=== PATIENT | male | born 1930 | race American Indian/Alaskan Native ===

== ENCOUNTER 2018-03-10 11:58 | Inpatient (IN) | payer MEDICARE ==
[2018-03-10] MEDS ORDERED: NACL 0.9% 1000 ML IV ONE (13:40)
[2018-03-10 13:44] LABS: Basophils % (Auto) 0.4 % (0.0-1.8); Eosinophils % (Auto) 0.1 % (0.0-4.3); Hematocrit 38.1 % (35.5-45.6); Hemoglobin 12.5 gm/dl (11.8-15.2); Lymphocytes # (Auto) 0.5 K/mm3 (1.2-5.4); Lymphocytes % (Auto) 5.3 % (13.4-35.0); Mean Corpuscular HGB Conc 33 % (32-34); Mean Corpuscular Hemoglobin 31 pg (28-32); Mean Corpuscular Volume 94 fl (84-94); Monocytes # (Auto) 0.7 K/mm3 (0.0-0.8); Platelet Count 202 K/mm3 (140-440); Red Blood Count 4.07 M/mm3 (3.65-5.03)
[2018-03-10 13:56] LABS: Bilirubin,Urine NEG (Negative); Blood,Urine SM (Negative); Color,Urine Yellow (Yellow); Mucus,Urine FEW /HPF; Urobilinogen,Urine < 2.0 mg/dL (<2.0)
[2018-03-10] MEDS ORDERED: HumuLIN R IV ONE (14:09)
--- NOTE | 2018-03-10 14:25 | Emergency Department Report ---
ED Altered Mental Status HPI - General Chief Complaint: Altered Mental Status Stated Complaint: HYPERGLYCENIA Time Seen by Provider: 03/10/18 13:15 Source: EMS Mode of arrival: Stretcher Limitations: Altered Mental Status - History of Present Illness Initial Comments: 87 yo male with a past medical history of anemia of chronic renal disease, hypertension, dementia, diabetes (on insulin), stage IV CKD, hyperlipidemia, prostate cancer, and PAD presents to the hospital from the long term for hypoglycemia and altered mental status. Glucose is reported in the 500s prior to arrival. Patient's son-in-law at the bedside states that he is typically alert and responsive. Patient is awake although slow to respond to questions. He is oriented to year but not place or date. He denies any pain currently and does not appear to be in any acute distress. Glucose 390 upon arrival. - Related Data Home Medications Medication Instructions Recorded Confirmed Last Taken Aspirin [Adult Aspirin] 81 mg PO DAILY 03/10/18 03/10/18 Unknown AtorvaSTATin [Lipitor] 10 mg PO QHS 03/10/18 03/10/18 Unknown Carvedilol 12.5 mg PO BID 03/10/18 03/10/18 Unknown Ferrous Sulfate [Iron] 325 mg PO DAILY 03/10/18 03/10/18 Unknown Insulin Glargine [Lantus] 9 unit SUB-Q QHS 03/10/18 03/10/18 Unknown Insulin Lispro [Humalog 100 0 units SQ AC 03/10/18 03/10/18 Unknown UNITS/ML Kwikpen] Loratadine [Allergy Relief] 10 mg PO DAILY 03/10/18 03/10/18 Unknown Rivastigmine Tartrate 4.5 mg PO BID 03/10/18 03/10/18 Unknown [Rivastigmine] Thiamine [Vitamin B-1] 100 mg PO QDAY 03/10/18 03/10/18 Unknown Allergies Allergy/AdvReac Type Severity Reaction Status Date / Time No Known Allergies Allergy Unverified 03/10/18 14:19 ED Review of Systems ROS: Stated complaint: HYPERGLYCENIA Other details as noted in HPI Comment: All other systems reviewed and negative ED Past Medical Hx - Past Medical History Hx Hypertension: Yes Hx Heart Attack/AMI: Yes Hx Renal Disease: Yes (stage IV chronic kidney disease) Hx of Cancer: Yes (history of prostate cancer) Hx Dementia: Yes Additional medical history: PAD. Hyperlipidemia - Surgical History Hx Open Heart Surgery: Yes (bypass) - Medications Home Medications: Home Medications Medication Instructions Recorded Confirmed Last Taken Type Aspirin [Adult Aspirin] 81 mg PO DAILY 03/10/18 03/10/18 Unknown History AtorvaSTATin [Lipitor] 10 mg PO QHS 03/10/18 03/10/18 Unknown History Carvedilol 12.5 mg PO BID 03/10/18 03/10/18 Unknown History Ferrous Sulfate [Iron] 325 mg PO DAILY 03/10/18 03/10/18 Unknown History Insulin Glargine [Lantus] 9 unit SUB-Q QHS 03/10/18 03/10/18 Unknown History Insulin Lispro [Humalog 100 0 units SQ AC 03/10/18 03/10/18 Unknown History UNITS/ML Kwikpen] Loratadine [Allergy Relief] 10 mg PO DAILY 03/10/18 03/10/18 Unknown History Rivastigmine Tartrate 4.5 mg PO BID 03/10/18 03/10/18 Unknown History [Rivastigmine] Thiamine [Vitamin B-1] 100 mg PO QDAY 03/10/18 03/10/18 Unknown History ED Physical Exam - General Limitations: Altered Mental Status - Other Other exam information: General: No limitations, patient is alert in no acute distress Head exam: Atraumatic, normocephalic Eyes exam: Normal appearance, pupils equal reactive to light, extraocular movements intact ENT: Moist mucous membrane, normal oropharynx Neck exam: Normal inspection, full range of motion, no meningismus nontender Respiratory exam: Clear to auscultation bilateral, no wheezes, rales, crackles Cardiovascular: CABG scar, regular rhythm Abdomen: Soft, nondistended, and nontender, with normal bowel sounds, no rebound, or guarding Extremity: Full range of motion normal inspection no deformity Back: Normal Inspection, full range of motion, no tenderness Neurologic: Alert, oriented to year but not to self or place. Slow to respond to questions. No slurred speech or facial asymmetry. Equal hand clin tech. Equal foot dorsi flexion. Unable to sustain either leg up against gravity. At his baseline he has a shuffling gait without a walker or cane Psychiatric: normal affect, normal mood Skin: Warm, dry, intact ED Course Vital Signs 03/10/18 12:09 Temperature 94.8 F L Pulse Rate 76 Respiratory 11 L Rate Blood Pressure 177/92 O2 Sat by Pulse 100 Oximetry - Lab Data Result diagrams: 03/10/18 13:28 03/10/18 13:54 Lab Results 03/10/18 03/10/18 03/10/18 Range/Units 12:08 13:26 13:28 WBC 9.9 (4.5-11.0) K/mm3 RBC 4.07 (3.65-5.03) M/mm3 Hgb 12.5 (11.8-15.2) gm/dl Hct 38.1 (35.5-45.6) % MCV 94 (84-94) fl MCH 31 (28-32) pg MCHC 33 (32-34) % RDW 14.0 (13.2-15.2) % Plt Count 202 (140-440) K/mm3 Lymph % (Auto) 5.3 L (13.4-35.0) % Cross % (Auto) 7.0 (0.0-7.3) % Eos % (Auto) 0.1 (0.0-4.3) % Baso % (Auto) 0.4 (0.0-1.8) % Lymph # 0.5 L (1.2-5.4) K/mm3 Cross # 0.7 (0.0-0.8) K/mm3 Eos # 0.0 (0.0-0.4) K/mm3 Baso # 0.0 (0.0-0.1) K/mm3 Seg Neutrophils % 87.2 H (40.0-70.0) % Seg Neutrophils # 8.7 H (1.8-7.7) K/mm3 VBG pH (7.320-7.420) Sodium (137-145) mmol/L Potassium (3.6-5.0) mmol/L Chloride (98-107) mmol/L Carbon Dioxide (22-30) mmol/L Anion Gap mmol/L BUN (9-20) mg/dL Creatinine (0.8-1.5) mg/dL Estimated GFR ml/min BUN/Creatinine Ratio % Glucose (75-100) mg/dL POC Glucose 390 H (70-105) Calcium (8.4-10.2) mg/dL Magnesium (1.7-2.3) mg/dL Total Bilirubin (0.1-1.2) mg/dL AST (5-40) units/L ALT (7-56) units/L Alkaline Phosphatase (35-129) units/L Ammonia (25-60) umol/L Total Protein (6.3-8.2) g/dL Albumin (3.9-5) g/dL Albumin/Globulin Ratio % TSH (0.270-4.200) mlU/mL Free T4 (0.76-1.46) ng/dL Urine Color Yellow (Yellow) Urine Turbidity Slightly-cloudy (Clear) Urine pH 5.0 (5.0-7.0) Ur Specific [place] 1.021 (1.003-1.030) Urine Protein 100 mg/dl (Negative) mg/dL Urine Glucose (UA) >=500 (Negative) mg/dL Urine Ketones Neg (Negative) mg/dL Urine Blood Sm (Negative) Urine Nitrite Neg (Negative) Urine Bilirubin Neg (Negative) Urine Urobilinogen < 2.0 (<2.0) mg/dL Ur Leukocyte Esterase Neg (Negative) Urine WBC (Auto) 2.0 (0.0-6.0) /HPF Urine RBC (Auto) 3.0 (0.0-6.0) /HPF Urine Mucus Few /HPF 03/10/18 03/10/18 03/10/18 Range/Units 13:28 13:28 13:54 WBC (4.5-11.0) K/mm3 RBC (3.65-5.03) M/mm3 Hgb (11.8-15.2) gm/dl Hct (35.5-45.6) % MCV (84-94) fl MCH (28-32) pg MCHC (32-34) % RDW (13.2-15.2) % Plt Count (140-440) K/mm3 Lymph % (Auto) (13.4-35.0) % Cross % (Auto) (0.0-7.3) % Eos % (Auto) (0.0-4.3) % Baso % (Auto) (0.0-1.8) % Lymph # (1.2-5.4) K/mm3 Cross # (0.0-0.8) K/mm3 Eos # (0.0-0.4) K/mm3 Baso # (0.0-0.1) K/mm3 Seg Neutrophils % (40.0-70.0) % Seg Neutrophils # (1.8-7.7) K/mm3 VBG pH 7.323 (7.320-7.420) Sodium 146 H 145 (137-145) mmol/L Potassium 4.6 4.6 (3.6-5.0) mmol/L Chloride 104.1 103.8 (98-107) mmol/L Carbon Dioxide 25 25 (22-30) mmol/L Anion Gap 22 21 mmol/L BUN 58 H 57 H (9-20) mg/dL Creatinine 2.1 H 2.0 H (0.8-1.5) mg/dL Estimated GFR 36 39 ml/min BUN/Creatinine Ratio 28 29 % Glucose 462 H 469 H (75-100) mg/dL POC Glucose (70-105) Calcium 10.0 9.9 (8.4-10.2) mg/dL Magnesium (1.7-2.3) mg/dL Total Bilirubin 0.50 (0.1-1.2) mg/dL AST 19 (5-40) units/L ALT 13 (7-56) units/L Alkaline Phosphatase 61 (35-129) units/L Ammonia (25-60) umol/L Total Protein 8.3 H (6.3-8.2) g/dL Albumin 3.5 L (3.9-5) g/dL Albumin/Globulin Ratio 0.7 % TSH (0.270-4.200) mlU/mL Free T4 (0.76-1.46) ng/dL Urine Color (Yellow) Urine Turbidity (Clear) Urine pH (5.0-7.0) Ur Specific [place] (1.003-1.030) Urine Protein (Negative) mg/dL Urine Glucose (UA) (Negative) mg/dL Urine Ketones (Negative) mg/dL Urine Blood (Negative) Urine Nitrite (Negative) Urine Bilirubin (Negative) Urine Urobilinogen (<2.0) mg/dL Ur Leukocyte Esterase (Negative) Urine WBC (Auto) (0.0-6.0) /HPF Urine RBC (Auto) (0.0-6.0) /HPF Urine Mucus /HPF 03/10/18 03/10/18 03/10/18 Range/Units 13:54 14:06 14:06 WBC (4.5-11.0) K/mm3 RBC (3.65-5.03) M/mm3 Hgb (11.8-15.2) gm/dl Hct (35.5-45.6) % MCV (84-94) fl MCH (28-32) pg MCHC (32-34) % RDW (13.2-15.2) % Plt Count (140-440) K/mm3 Lymph % (Auto) (13.4-35.0) % Cross % (Auto) (0.0-7.3) % Eos % (Auto) (0.0-4.3) % Baso % (Auto) (0.0-1.8) % Lymph # (1.2-5.4) K/mm3 Cross # (0.0-0.8) K/mm3 Eos # (0.0-0.4) K/mm3 Baso # (0.0-0.1) K/mm3 Seg Neutrophils % (40.0-70.0) % Seg Neutrophils # (1.8-7.7) K/mm3 VBG pH (7.320-7.420) Sodium (137-145) mmol/L Potassium (3.6-5.0) mmol/L Chloride (98-107) mmol/L Carbon Dioxide (22-30) mmol/L Anion Gap mmol/L BUN (9-20) mg/dL Creatinine (0.8-1.5) mg/dL Estimated GFR ml/min BUN/Creatinine Ratio % Glucose (75-100) mg/dL POC Glucose (70-105) Calcium (8.4-10.2) mg/dL Magnesium 2.10 (1.7-2.3) mg/dL Total Bilirubin (0.1-1.2) mg/dL AST (5-40) units/L ALT (7-56) units/L Alkaline Phosphatase (35-129) units/L Ammonia 46.0 (25-60) umol/L Total Protein (6.3-8.2) g/dL Albumin (3.9-5) g/dL Albumin/Globulin Ratio % TSH 4.840 H (0.270-4.200) mlU/mL Free T4 1.10 (0.76-1.46) ng/dL Urine Color (Yellow) Urine Turbidity (Clear) Urine pH (5.0-7.0) Ur Specific [place] (1.003-1.030) Urine Protein (Negative) mg/dL Urine Glucose (UA) (Negative) mg/dL Urine Ketones (Negative) mg/dL Urine Blood (Negative) Urine Nitrite (Negative) Urine Bilirubin (Negative) Urine Urobilinogen (<2.0) mg/dL Ur Leukocyte Esterase (Negative) Urine WBC (Auto) (0.0-6.0) /HPF Urine RBC (Auto) (0.0-6.0) /HPF Urine Mucus /HPF - EKG Data -: EKG Interpreted by Me (inc rbbb) EKG shows normal: sinus rhythm, axis (qrs -34), QRS complexes (qrsd 116), ST-T waves (pvc's) Rate: normal (69) - Radiology Data Radiology results: report reviewed CT HEAD WITHOUT CONTRAST: HISTORY: Altered mental status. TECHNIQUE: Sequential CT images without contrast. FINDINGS: Images obtained show bilateral prominence of the sulci and ventricles. There are no abnormal intra- or extra-axial blood or fluid collections. There are no focal masses or evidence of mass effect. The garrett white matter differentiation appears within normal limits. Regions of periventricular decreased attenuation are consistent with microangiopathic ischemic disease. The posterior fossa structures including the fourth ventricle , cerebellum, and brainstem appear normal. The right frontal, right ethmoid and right maxillary sinuses are occluded. IMPRESSION: Evidence of atrophy and microangiopathic ischemic disease. No acute intracranial process noted. Sinus as described. AP CHEST: HISTORY: Mental status, sepsis Previous CABG changes are suspected. Heart size and pulmonary vascularity are normal. The lungs are adequately aerated. Very few calcified granulomas at the right lung base. Minor linear scarring adjacent to left hilum. No pleural effusion or pneumothorax. I MPRESSION: No acute cardiopulmonary process is identified. - Medical Decision Making Patient is awake and alert although somewhat slow to respond to questions. Family confirms that mental status is diminished. CT head unremarkable. Labs reveal dehydration and renal insufficiency. Baseline creatinine unknown since this is the patient's first visit on a record here. Pt hypothermic with Labs significant for dehydration, hyperglycemia without signs of DKA. Patient covered in warm blankets. No source of infection identified. Patient has CABG scar with a known EF. 30 mL per KG bolus of normal saline ordered as per sepsis protocol but then decreased to 1 L given due to unknown EF. Addtional fluids to be ordered by hospitalist. Elevated lactic acid. No source of infection identified. Cultures pending. - Differential Diagnosis sepsis, hypoglycemia, encephalopathy, CVA Critical Care Time: No Critical care attestation.: If time is entered above; I have spent that time in minutes in the direct care of this critically ill patient, excluding procedure time. ED Disposition Clinical Impression: Mental status, decreased, Dehydration, CRI (chronic renal insufficiency), Diabetes mellitus with hyperglycemia Dementia Qualifiers: Alzheimer's disease onset: late-onset Dementia behavioral disturbance: without behavioral disturbance Disposition: DC-09 OP ADMIT IP TO THIS HOSP Is pt being admited?: Yes Condition: Stable Time of Disposition: 15:44 (Dr Varghese/hosp)
[2018-03-10 14:29] LABS: Albumin 3.5 g/dL (3.9-5); Calcium 9.9 mg/dL (8.4-10.2)
--- NOTE | 2018-03-10 15:07 | Cat Scan Report ---
CT HEAD WITHOUT CONTRAST: HISTORY: Altered mental status. TECHNIQUE: Sequential CT images without contrast. FINDINGS: Images obtained show bilateral prominence of the sulci and ventricles. There are no abnormal intra- or extra-axial blood or fluid collections. There are no focal masses or evidence of mass effect. The garrett white matter differentiation appears within normal limits. Regions of periventricular decreased attenuation are consistent with microangiopathic ischemic disease. The posterior fossa structures including the fourth ventricle, cerebellum, and brainstem appear normal. The right frontal, right ethmoid and right maxillary sinuses are occluded. IMPRESSION: Evidence of atrophy and microangiopathic ischemic disease. No acute intracranial process noted. Sinus as described.
--- NOTE | 2018-03-10 15:15 | XRay Report ---
AP CHEST: HISTORY: Mental status, sepsis Previous CABG changes are suspected. Heart size and pulmonary vascularity are normal. The lungs are adequately aerated. Very few calcified granulomas at the right lung base. Minor linear scarring adjacent to left hilum. No pleural effusion or pneumothorax. IMPRESSION: No acute cardiopulmonary process is identified.
[2018-03-10 15:16] LABS: Free T4 (Free Thyroxine) 1.1 ng/dL (0.76-1.46)
[2018-03-10] MEDS ORDERED: NACL 0.9% 1000 ML 1,000 ML IV ONE (15:48)
--- NOTE | 2018-03-10 15:48 | History and Physical Report ---
History of Present Illness Chief complaint: He is more confused today History of present illness: 87 YO Male SNF Resident with Dementia, CAD S/P CABG, DM, HLD, CaP, PAD, ID presents to ED for evaluation. Pt is confused and unable to provide history. Pt daughters are at bedside at time of exam and provide history. As per family, the patient has experienced increased confusion over the past 3 weeks and decreased interaction with family. Pt was found by SNF staff to have worsening confusion today. EMS was notified, and upon arrival the patient was found to be confused with a serum glucose above 500. Pt transported to [facility] for further care and evaluation. Pt seen and evaluated in ED and found to have Encephalopathy, ARF, and Uncontrolled Diabetes. Pt admitted to [facility] with Remote Telemetry. Pt family counseled regarding prognosis. Past History Past Medical History: acute ID, cancer, diabetes, hypertension, hyperlipidemia, PVD Past Surgical History: CABG Social history: single Family history: diabetes, hypertension Medications and Allergies Allergies Allergy/AdvReac Type Severity Reaction Status Date / Time No Known Allergies Allergy Unverified 03/10/18 14:19 Home Medications Medication Instructions Recorded Confirmed Last Taken Type Aspirin [Adult Aspirin] 81 mg PO DAILY 03/10/18 03/10/18 Unknown History AtorvaSTATin [Lipitor] 10 mg PO QHS 03/10/18 03/10/18 Unknown History Carvedilol 12.5 mg PO BID 03/10/18 03/10/18 Unknown History Ferrous Sulfate [Iron] 325 mg PO DAILY 03/10/18 03/10/18 Unknown History Insulin Glargine [Lantus] 9 unit SUB-Q QHS 03/10/18 03/10/18 Unknown History Insulin Lispro [Humalog 100 0 units SQ AC 03/10/18 03/10/18 Unknown History UNITS/ML Kwikpen] Loratadine [Allergy Relief] 10 mg PO DAILY 03/10/18 03/10/18 Unknown History Rivastigmine Tartrate 4.5 mg PO BID 03/10/18 03/10/18 Unknown History [Rivastigmine] Thiamine [Vitamin B-1] 100 mg PO QDAY 03/10/18 03/10/18 Unknown History Active Meds: Active Medications Sodium Chloride (Nacl 0.9% 1000 Ml) 1,000 mls @ 999 mls/hr IV BOLUS ONE Stop: 03/10/18 16:48 Review of Systems ROS unobtainable: due to mental status Exam - Constitutional Vitals: Temp Pulse Resp BP Pulse Ox 94.8 F L 76 11 L 177/92 100 03/10/18 12:09 03/10/18 12:09 03/10/18 12:09 03/10/18 12:09 03/10/18 12:09 General appearance: Present: mild distress - EENT Eyes: Present: PERRL ENT: hearing intact, clear oral mucosa - Neck Neck: Present: supple, normal ROM - Respiratory Respiratory effort: normal Respiratory: bilateral: CTA - Cardiovascular Heart Sounds: Present: S1 & S2. Absent: rub, click - Extremities Extremities: pulses symmetrical, No edema Peripheral Pulses: within normal limits - Abdominal General gastrointestinal: Present: soft, non-tender, non-distended, normal bowel sounds Male genitourinary: Present: normal - Integumentary Integumentary: Present: clear, dry, decreased turgor - Musculoskeletal Musculoskeletal: generalized weakness - Psychiatric Psychiatric: no intact judgment & insight, no memory intact, cooperative - Neurologic Neurologic: CNII-XII intact, no gait normal Results - Labs CBC & Chem 7: 03/10/18 13:28 03/10/18 13:54 Labs: Abnormal lab results 03/10/18 03/10/18 03/10/18 Range/Units 12:08 13:28 13:28 Lymph % (Auto) 5.3 L (13.4-35.0) % Lymph # 0.5 L (1.2-5.4) K/mm3 Seg Neutrophils % 87.2 H (40.0-70.0) % Seg Neutrophils # 8.7 H (1.8-7.7) K/mm3 Sodium 146 H (137-145) mmol/L BUN 58 H (9-20) mg/dL Creatinine 2.1 H (0.8-1.5) mg/dL Glucose 462 H (75-100) mg/dL POC Glucose 390 H (70-105) Total Protein (6.3-8.2) g/dL Albumin (3.9-5) g/dL TSH (0.270-4.200) mlU/mL 03/10/18 03/10/18 Range/Units 13:54 14:06 Lymph % (Auto) (13.4-35.0) % Lymph # (1.2-5.4) K/mm3 Seg Neutrophils % (40.0-70.0) % Seg Neutrophils # (1.8-7.7) K/mm3 Sodium (137-145) mmol/L BUN 57 H (9-20) mg/dL Creatinine 2.0 H (0.8-1.5) mg/dL Glucose 469 H (75-100) mg/dL POC Glucose (70-105) Total Protein 8.3 H (6.3-8.2) g/dL Albumin 3.5 L (3.9-5) g/dL TSH 4.840 H (0.270-4.200) mlU/mL Assessment and Plan - Patient Problems (1) ARF (acute renal failure) with tubular necrosis Current Visit: Yes Status: Acute Plan to address problem: IVF resuscitation therapy, urine electrolytes, monitor uop q shift, repeat BMP. (2) Uncontrolled diabetes mellitus Current Visit: Yes Status: Acute Qualifiers: Glycemic state: with hyperglycemia Plan to address problem: Insulin therapy, ADA diet, accu check, (3) Encephalopathy Current Visit: Yes Status: Acute Plan to address problem: CT head, neuro checks, seizure precautions, fall precautions, EEG, Echo, (4) Dementia Current Visit: Yes Status: Acute Qualifiers: Alzheimer's disease onset: late-onset Dementia behavioral disturbance: without behavioral disturbance Plan to address problem: CT Head, neuro checks, supportive care, resume prehospital medication. (5) DVT prophylaxis Current Visit: Yes Status: Acute Plan to address problem: SCD to BLE while in bed.
[2018-03-10] MEDS ORDERED: TYLENOL PO PRN (15:52)
[2018-03-10] MEDS ORDERED: PROVENTIL IH PRN (15:52)
[2018-03-10] MEDS ORDERED: ZOFRAN IV PRN (15:52)
[2018-03-10] MEDS: APRESOLINE IV PRN (19:16)
[2018-03-10] MEDS: NACL 0.45% 1000 ML 1,000 ML IV SCH (19:47)
[2018-03-10] MEDS ORDERED: NACL 0.45% 1000 ML 1,000 ML IV ONE (19:55)
[2018-03-10] MEDS ORDERED: HumuLIN R ONE (20:15)
[2018-03-10] MEDS: HumuLIN R SUB-Q SCH ×2 (20:31→23:28)
[2018-03-10] MEDS ORDERED: RIVASTIGMINE TARTRATE 4.5 MG PO SCH (22:00)
[2018-03-10] MEDS: LANTUS SUB-Q SCH (23:28)
[2018-03-10] MEDS: PEPCID IV SCH (23:29)
[2018-03-10] MEDS: COREG PO SCH (23:30)
[2018-03-10] MEDS: SODIUM CHLORIDE FLUSH SYRINGE 10 ML IV SCH (23:31)
[2018-03-10] MEDS: EXELON PO SCH (23:31)
[2018-03-11] MEDS: APRESOLINE IV PRN (02:30)
[2018-03-11 04:47] LABS: Calcium 9.6 mg/dL (8.4-10.2)
[2018-03-11] MEDS: NACL 0.45% 1000 ML 1,000 ML IV SCH (05:30)
[2018-03-11] MEDS: SODIUM CHLORIDE FLUSH SYRINGE 10 ML IV PRN ×2 (07:36→11:41)
[2018-03-11] MEDS: D50W (25GM) Syringe IV PRN ×3 (07:36→22:30)
[2018-03-11] MEDS: HumuLIN R SUB-Q SCH ×4 (08:14→22:46)
[2018-03-11] MEDS: NACL 0.9% 1000 ML 1,000 ML IV SCH ×2 (09:56→21:59)
[2018-03-11] MEDS: FEOSOL PO SCH (12:35)
[2018-03-11] MEDS: VITAMIN B-1 PO SCH (12:35)
[2018-03-11] MEDS: PEPCID IV SCH ×2 (12:36→22:00)
[2018-03-11] MEDS: COREG PO SCH ×2 (12:36→21:59)
[2018-03-11] MEDS: HALFPRIN EC PO SCH (12:36)
[2018-03-11] MEDS: CLARITIN PO SCH (12:37)
[2018-03-11] MEDS: EXELON PO SCH ×2 (12:40→21:59)
[2018-03-11] MEDS: SODIUM CHLORIDE FLUSH SYRINGE 10 ML IV SCH ×2 (12:41→22:00)
--- NOTE | 2018-03-11 14:10 | Progress Note ---
Assessment and Plan / ARF (acute renal failure) with tubular necrosis ? cont IVF resuscitation therapy, urine electrolytes, monitor uop q shift, repeat BMP. Obtain renal US for possible underlying CKD, baseline Cr unknown /Uncontrolled diabetes mellitus BG was ~500 on admission Insulin therapy, ADA diet, accu check, / Acute metabolic Encephalopathy Likely due to worsening renal function and uncontrolled BG CT head unremarkable, neuro checks, seizure precautions, fall precautions /HTN, cont coreg and as needed hydralazine IV adjust meds dose as needed for better control BP /Dementia supportive care, resume prehospital medication. /Coronary artery disease status post bypass surgery Cont aspirin, statin, BB Hold ACEI, diuretics / DVT prophylaxis SCD to BLE while in bed. Subjective Date of service: 03/11/18 Interval history: Pt seen and examined Family at bedside, updated Patient is restraint, denies any chest pain or SOB Objective - Constitutional Vitals: Vital Signs - 12hr 03/11/18 03/11/18 03/11/18 02:30 07:27 09:03 Temperature 97.4 F L Pulse Rate 57 L 78 Pulse Rate [ From Monitor] Respiratory 18 Rate Blood Pressure 177/89 155/83 O2 Sat by Pulse 99 99 Oximetry 03/11/18 03/11/18 03/11/18 10:00 11:18 11:20 Temperature 97.3 F L Pulse Rate 65 78 77 Pulse Rate [ 78 From Monitor] Respiratory 18 18 Rate Blood Pressure 175/84 O2 Sat by Pulse 99 100 100 Oximetry 03/11/18 12:36 Temperature Pulse Rate 78 Pulse Rate [ From Monitor] Respiratory Rate Blood Pressure 175/84 O2 Sat by Pulse Oximetry General appearance: Present: no acute distress, well-nourished, other (elderly) - EENT Eyes: PERRL, EOM intact ENT: hearing intact, clear oral mucosa Ears: bilateral: normal - Neck Neck: supple, normal ROM - Respiratory Respiratory effort: normal Respiratory: bilateral: CTA - Cardiovascular Rhythm: regular Heart Sounds: Present: S1 & S2. Absent: gallop, rub Extremities: pulses intact, No edema, normal color, Full ROM - Gastrointestinal General gastrointestinal: Present: soft, non-tender, non-distended, normal bowel sounds - Integumentary Integumentary: clear, warm, dry - Musculoskeletal Musculoskeletal: 1, strength equal bilaterally - Neurologic Neurologic: moves all extremities, other (oriented to self only) - Psychiatric Psychiatric: no appropriate mood/affect, no intact judgment & insight, no memory intact - Labs CBC & Chem 7: 03/10/18 13:28 03/13/18 03:02 Labs: Abnormal lab results 03/10/18 03/10/18 03/10/18 Range/Units 13:54 14:06 16:03 D-Dimer (0-234) ng/mlDDU Chloride (98-107) mmol/L Carbon Dioxide (22-30) mmol/L BUN 57 H (9-20) mg/dL Creatinine 2.0 H (0.8-1.5) mg/dL Glucose 469 H (75-100) mg/dL POC Glucose (70-105) Lactic Acid 3.60 H* (0.7-2.0) mmol/L NT-Pro-B Natriuret Pep (0-900) pg/mL Total Protein 8.3 H (6.3-8.2) g/dL Albumin 3.5 L (3.9-5) g/dL TSH 4.840 H (0.270-4.200) mlU/mL Urine Creatinine (0.1-20.0) mg/dL 03/10/18 03/10/18 03/10/18 Range/Units 16:03 16:03 17:43 D-Dimer 489.32 H (0-234) ng/mlDDU Chloride (98-107) mmol/L Carbon Dioxide (22-30) mmol/L BUN (9-20) mg/dL Creatinine (0.8-1.5) mg/dL Glucose (75-100) mg/dL POC Glucose (70-105) Lactic Acid 2.20 H* (0.7-2.0) mmol/L NT-Pro-B Natriuret Pep 2058 H (0-900) pg/mL Total Protein (6.3-8.2) g/dL Albumin (3.9-5) g/dL TSH (0.270-4.200) mlU/mL Urine Creatinine (0.1-20.0) mg/dL 03/10/18 03/10/18 03/10/18 Range/Units 18:40 20:47 22:46 D-Dimer (0-234) ng/mlDDU Chloride (98-107) mmol/L Carbon Dioxide (22-30) mmol/L BUN (9-20) mg/dL Creatinine (0.8-1.5) mg/dL Glucose (75-100) mg/dL POC Glucose 310 H (70-105) Lactic Acid 2.80 H* 2.30 H* (0.7-2.0) mmol/L NT-Pro-B Natriuret Pep (0-900) pg/mL Total Protein (6.3-8.2) g/dL Albumin (3.9-5) g/dL TSH (0.270-4.200) mlU/mL Urine Creatinine (0.1-20.0) mg/dL 03/10/18 03/11/18 03/11/18 Range/Units 23:02 03:33 03:47 D-Dimer (0-234) ng/mlDDU Chloride 108.6 H (98-107) mmol/L Carbon Dioxide 21 L (22-30) mmol/L BUN 52 H (9-20) mg/dL Creatinine 1.9 H (0.8-1.5) mg/dL Glucose 184 H (75-100) mg/dL POC Glucose 232 H (70-105) Lactic Acid 2.90 H* (0.7-2.0) mmol/L NT-Pro-B Natriuret Pep (0-900) pg/mL Total Protein (6.3-8.2) g/dL Albumin (3.9-5) g/dL TSH (0.270-4.200) mlU/mL Urine Creatinine (0.1-20.0) mg/dL 03/11/18 03/11/18 03/11/18 Range/Units 07:27 08:13 11:18 D-Dimer (0-234) ng/mlDDU Chloride (98-107) mmol/L Carbon Dioxide (22-30) mmol/L BUN (9-20) mg/dL Creatinine (0.8-1.5) mg/dL Glucose (75-100) mg/dL POC Glucose 58 L 114 H 68 L (70-105) Lactic Acid (0.7-2.0) mmol/L NT-Pro-B Natriuret Pep (0-900) pg/mL Total Protein (6.3-8.2) g/dL Albumin (3.9-5) g/dL TSH (0.270-4.200) mlU/mL Urine Creatinine (0.1-20.0) mg/dL 03/11/18 03/11/18 03/11/18 Range/Units 11:30 12:36 Unknown D-Dimer (0-234) ng/mlDDU Chloride (98-107) mmol/L Carbon Dioxide (22-30) mmol/L BUN (9-20) mg/dL Creatinine (0.8-1.5) mg/dL Glucose (75-100) mg/dL POC Glucose 163 H (70-105) Lactic Acid 2.70 H* (0.7-2.0) mmol/L NT-Pro-B Natriuret Pep (0-900) pg/mL Total Protein (6.3-8.2) g/dL Albumin (3.9-5) g/dL TSH (0.270-4.200) mlU/mL Urine Creatinine 95.0 H (0.1-20.0) mg/dL
[2018-03-11] MEDS: LANTUS SUB-Q SCH (22:00)
[2018-03-12 05:45] LABS: Calcium 8.7 mg/dL (8.4-10.2)
[2018-03-12] MEDS: HumuLIN R SUB-Q SCH ×4 (08:15→22:08)
[2018-03-12] MEDS: APRESOLINE IV PRN (08:15)
[2018-03-12] MEDS: VITAMIN B-1 PO SCH (09:43)
[2018-03-12] MEDS: CLARITIN PO SCH (09:43)
[2018-03-12] MEDS: HALFPRIN EC PO SCH (09:43)
[2018-03-12] MEDS: FEOSOL PO SCH (09:44)
[2018-03-12] MEDS: COREG PO SCH ×2 (09:44→22:07)
[2018-03-12] MEDS: PEPCID IV SCH (09:46)
[2018-03-12] MEDS: SODIUM CHLORIDE FLUSH SYRINGE 10 ML IV SCH ×2 (09:47→22:09)
[2018-03-12] MEDS: EXELON PO SCH ×2 (09:47→22:06)
--- NOTE | 2018-03-12 10:40 | Consultation ---
History of Present Illness - Reason for Consult Consult date: 03/12/18 acute renal failure Requesting physician: SHAWNEE NAVARRO - History of Present Illness 87 YO Male SNF Resident with Dementia, CAD S/P CABG, DM, HLD, CaP, PAD, [place] presents to ED for evaluation. Pt is confused and unable to provide history. Information obtained from patient's admission notes . As per family, the patient had experienced increased confusion over the past 3 weeks and decreased interaction with family. Pt was found by SNF staff to have worsening confusion on the day of admission . EMS was notified, and upon arrival the patient was found to be confused with a serum glucose above 500. Pt transported to [facility] for further care and evaluation. Patient was found to have elevation in BUN/creatinine and therefore this consultation Past History Past Medical History: acute [place], cancer, diabetes, hypertension, hyperlipidemia, PVD Past Surgical History: CABG Social history: single Family history: diabetes, hypertension Medications and Allergies Allergies Allergy/AdvReac Type Severity Reaction Status Date / Time No Known Allergies Allergy Unverified 03/10/18 14:19 Home Medications Medication Instructions Recorded Confirmed Last Taken Type Aspirin [Adult Aspirin] 81 mg PO DAILY 03/10/18 03/10/18 Unknown History AtorvaSTATin [Lipitor] 10 mg PO QHS 03/10/18 03/10/18 Unknown History Carvedilol 12.5 mg PO BID 03/10/18 03/10/18 Unknown History Ferrous Sulfate [Iron] 325 mg PO DAILY 03/10/18 03/10/18 Unknown History Insulin Glargine [Lantus] 9 unit SUB-Q QHS 03/10/18 03/10/18 Unknown History Insulin Lispro [Humalog 100 0 units SQ AC 03/10/18 03/10/18 Unknown History UNITS/ML Kwikpen] Loratadine [Allergy Relief] 10 mg PO DAILY 03/10/18 03/10/18 Unknown History Rivastigmine Tartrate 4.5 mg PO BID 03/10/18 03/10/18 Unknown History [Rivastigmine] Thiamine [Vitamin B-1] 100 mg PO QDAY 03/10/18 03/10/18 Unknown History Active Meds: Active Medications Acetaminophen (Tylenol) 650 mg PO Q4H PRN PRN Reason: Pain MILD(1-3)/Fever >100.5/WING Albuterol (Proventil) 2.5 mg IH Q4HRT PRN PRN Reason: Shortness Of Breath Aspirin (Halfprin Ec) 81 mg PO DAILY [facility] Last Admin: 03/12/18 09:43 Dose: 81 mg Atorvastatin Calcium (Lipitor) 10 mg PO QHS [facility] Last Admin: 03/11/18 22:00 Dose: 10 mg Carvedilol (Coreg) 12.5 mg PO BID [facility] Last Admin: 03/12/18 09:44 Dose: 12.5 mg Dextrose (D50w (25gm) Syringe) 50 ml IV PRN PRN PRN Reason: Hypoglycemia Last Admin: 03/11/18 22:30 Dose: 50 ml Famotidine (Pepcid) 10 mg IV BID [facility] Last Admin: 03/12/18 09:46 Dose: 10 mg Ferrous Sulfate (Feosol) 325 mg PO DAILY [facility] Last Admin: 03/12/18 09:44 Dose: 325 mg Hydralazine HCl (Apresoline) 5 mg IV Q30MIN PRN PRN Reason: Hypertension Last Admin: 03/12/18 08:15 Dose: 5 mg Sodium Chloride (Nacl 0.9% 1000 Ml) 1,000 mls @ 100 mls/hr IV DIRECT [facility] Last Admin: 03/11/18 21:59 Dose: 100 mls/hr Insulin Glargine (Lantus) 9 units SUB-Q QHS [facility] Last Admin: 03/11/18 22:00 Dose: 9 units Insulin Human Regular (Humulin R) 0 units SUB-Q [facility]; Protocol Last Admin: 03/12/18 08:15 Dose: Not Given Loratadine (Claritin) 10 mg PO DAILY [facility] Last Admin: 03/12/18 09:43 Dose: 10 mg Ondansetron HCl (Zofran) 4 mg IV Q8H PRN PRN Reason: Nausea And Vomiting Rivastigmine Tartrate (Exelon) 4.5 mg PO BID [facility] Last Admin: 03/12/18 09:47 Dose: 4.5 mg Sodium Chloride (Sodium Chloride Flush Syringe 10 Ml) 10 ml IV BID [facility] Last Admin: 03/12/18 09:47 Dose: 10 ml Sodium Chloride (Sodium Chloride Flush Syringe 10 Ml) 10 ml IV PRN PRN PRN Reason: LINE FLUSH Last Admin: 03/11/18 11:41 Dose: 10 ml Thiamine HCl (Vitamin B-1) 100 mg PO QDAY [facility] Last Admin: 03/12/18 09:43 Dose: 100 mg Review of Systems ROS unobtainable: due to mental status Exam - Vital Signs Vital signs: Vital Signs Temp Pulse Resp BP Pulse Ox 94.8 F L 76 11 L 177/92 100 03/10/18 12:09 03/10/18 12:09 03/10/18 12:09 03/10/18 12:09 03/10/18 12:09 - General Appearance General appearance: chronically ill, frail, other (pleasant -Czech male) EENT: PERRL, mucous membranes moist Neck: Present: neck supple, trachea midline. Absent: JVD/HJR, Masses Respiratory: Clear to Ascultation Heart: regular, normal heart rate, S1S2, no murmurs Gastrointestinal: Present: normal, normoactive bowel sounds, other (bladder does not appear distended) Integumentary: no rash, other (no edema) Results - Lab Results 03/10/18 13:28 03/12/18 04:18 Most recent lab results Calcium 8.7 mg/dL (8.4-10.2) 03/12/18 04:18 Magnesium 2.10 mg/dL (1.7-2.3) 03/10/18 13:54 Urine Creatinine 95.0 mg/dL (0.1-20.0) H 03/11/18 11:30 Urine Sodium 105 mmol/L 03/11/18 11:30 Assessment and Plan Impression * Acute kidney injury * Encephalopathy * Hypertension * Uncontrolled diabetes * Dementia * Coronary artery disease status post bypass surgery Recommendations * Patient clinically appears to be volume depleted. His serum creatinine was 2.1 on admission. * He seems to be responding to IV hydration. However his fractional excretion of sodium is 1.5% * His baseline renal function however is not known. * He also has 2+ dipstick protein. He may have underlying diabetic nephropathy. Check urine protein creatinine ratio * Continue IV hydration * Check renal ultrasound to assess kidney size and echogenicity. Also check a postvoid residual * Monitor patient's fluid status and electrolytes closely * Avoid nephrotoxins. Avoid CHERIE inhibitor or ARB at this time as well * Thank you very much for the consultation. Shall follow along with you
--- NOTE | 2018-03-12 15:09 | Progress Note ---
Assessment and Plan / ARF (acute renal failure) with tubular necrosis ? cont IVF resuscitation therapy, repeat BMP in the am. Renal function improving renal US was unremarkable, baseline Cr unknown /Uncontrolled diabetes mellitus BG was ~500 on admission adjust Insulin therapy as needed, cont ADA diet, accu check, / Acute metabolic Encephalopathy Likely due to worsening renal function and uncontrolled BG CT head unremarkable, cont neuro checks, seizure precautions, fall precautions /HTN, cont coreg and as needed hydralazine IV adjust meds dose as needed for better control BP /Dementia supportive care, resume prehospital medication. /Coronary artery disease status post bypass surgery Cont aspirin, statin, BB Hold ACEI, diuretics / DVT prophylaxis SCD to BLE while in bed. Disposition: Family wants him to go bacl to personal skilled nursing but if he required SNF level of care they are willing to consider SNF. Brief History: 87 YO Male personal skilled nursing Resident with h/o Dementia, CAD S/P CABG, DM, HLD , PAD, [place] presents to ED for evaluation of increased confusion over the past 3 weeks and decreased interaction with family. EMS was notified, and the patient was found to be confused with a serum glucose above 500. Pt transported to [facility] for further care and evaluation and was found to have elevation in BUN/ creatinine with hyperglycemia. Radiological data: Renal US: Bilateral renal cysts. No hydronephrosis. CT head: Evidence of atrophy and microangiopathic ischemic disease. No acute intracranial process noted. Sinus as described. CXR: No acute cardiopulmonary process is identified. Subjective Date of service: 03/12/18 Interval history: Pt seen and examined Family at bedside, updated Patient is restraint, denies any chest pain or SOB Objective - Exam Narrative Exam: General appearance: Present: no acute distress, well-nourished, other (elderly) - EENT Eyes: PERRL, EOM intact ENT: hearing intact, clear oral mucosa Ears: bilateral: normal - Neck Neck: supple, normal ROM - Respiratory Respiratory effort: normal Respiratory: bilateral: CTA - Cardiovascular Rhythm: regular Heart Sounds: Present: S1 & S2. Absent: gallop, rub Extremities: pulses intact, No edema, normal color, Full ROM - Gastrointestinal General gastrointestinal: Present: soft, non-tender, non-distended, normal bowel sounds - Integumentary Integumentary: clear, warm, dry - Musculoskeletal Musculoskeletal: 1, strength equal bilaterally - Neurologic Neurologic: moves all extremities, other (oriented to self only) - Psychiatric Psychiatric: no appropriate mood/affect, no intact judgment & insight, no memory intact - Constitutional Vitals: Vital Signs - 12hr 03/12/18 03/12/18 03/12/18 03:36 07:23 08:15 Temperature 98.1 F 97.4 F L Pulse Rate 75 71 71 Respiratory 18 18 Rate Blood Pressure 168/93 189/86 189/86 O2 Sat by Pulse 95 100 Oximetry 03/12/18 03/12/18 03/12/18 08:51 09:14 09:44 Temperature Pulse Rate 89 89 Respiratory 20 Rate Blood Pressure 138/78 138/78 O2 Sat by Pulse 98 98 Oximetry - Labs CBC & Chem 7: 03/10/18 13:28 03/13/18 03:02 Labs: Abnormal lab results 03/11/18 03/11/18 03/11/18 Range/Units 16:01 16:41 22:20 Carbon Dioxide (22-30) mmol/L BUN (9-20) mg/dL Creatinine (0.8-1.5) mg/dL Glucose (75-100) mg/dL POC Glucose 316 H 49 L (70-105) Hemoglobin A1c 11.9 H (4-6) % 03/11/18 03/12/18 03/12/18 Range/Units 23:08 04:18 07:23 Carbon Dioxide 20 L (22-30) mmol/L BUN 37 H (9-20) mg/dL Creatinine 1.7 H (0.8-1.5) mg/dL Glucose 125 H (75-100) mg/dL POC Glucose 210 H 133 H (70-105) Hemoglobin A1c (4-6) % 03/12/18 Range/Units 11:47 Carbon Dioxide (22-30) mmol/L BUN (9-20) mg/dL Creatinine (0.8-1.5) mg/dL Glucose (75-100) mg/dL POC Glucose 288 H (70-105) Hemoglobin A1c (4-6) %
--- NOTE | 2018-03-12 18:50 | Ultrasound Report ---
FINAL REPORT EXAM: US BLADDER RESIDUAL HISTORY: SUELLEN TECHNIQUE: Ultrasound imaging of the urinary bladder was performed. PRIORS: None. FINDINGS: No bladder wall thickening or internal debris. Prevoid bladder volume was 226 milliliters. No postvoid images were obtained as the patient could not urinate. IMPRESSION: Bladder volume of 226 milliliters. No postvoid images obtained as the patient could not urinate.
[2018-03-12] MEDS: NACL 0.9% 1000 ML 1,000 ML IV SCH (20:10)
--- NOTE | 2018-03-12 20:38 | Ultrasound Report ---
FINAL REPORT EXAM: US RENAL BILAT HISTORY: SUELLEN COMPARISON: None available. TECHNIQUE: Several real-time grayscale and color Doppler images were obtained. FINDINGS: Right kidney measures 10.0 x 4.4 x 5.2 centimeters. The cortex 1.3 centimeters. Left kidney measures 9.5 x 5.4 x 4.1 centimeters. Cortex 1.7 centimeters. At the superior margin right kidney there is a 9 millimeter cyst. The mid right kidney there is a 9 millimeter hypoechoic structure most likely reflecting a cyst. There is a 2nd cyst at the superior margin right kidney measuring 8 millimeters. At the superior margin of the left kidney there is a 3.3 x 2.7 x 3.3 centimeter cyst. No hydronephrosis bilaterally. Punctate nonobstructive renal calculi could be obscured by renal sinus fat. Gross vascular flow to the kidneys. Urinary bladder is decompressed. IMPRESSION: Bilateral renal cysts. No hydronephrosis.
[2018-03-12 21:00] LABS: Creatinine,Urine 20.7 mg/dL (0.1-20.0); Protein/Creatinine Ratio,Urine 0.63
[2018-03-12] MEDS: PEPCID PO SCH (22:07)
[2018-03-12] MEDS: LANTUS SUB-Q SCH (22:08)
[2018-03-13 03:35] LABS: Calcium 8.4 mg/dL (8.4-10.2)
[2018-03-13] MEDS: APRESOLINE IV PRN (05:05)
[2018-03-13] MEDS: APRESOLINE PO SCH ×3 (08:33→22:35)
[2018-03-13] MEDS: HumuLIN R SUB-Q SCH ×5 (08:55→22:36)
--- NOTE | 2018-03-13 10:23 | Progress Note ---
Assessment and Plan Impression * Acute kidney injury * Encephalopathy * Hypertension * Uncontrolled diabetes * Dementia * Coronary artery disease status post bypass surgery Recommendations * Patient clinically appears to be volume depleted. * cr is better today * bladder us noted, inability to void? obstruction, place aleman if needed * He seems to be responding to IV hydration. * He also has 2+ dipstick protein. He may have underlying diabetic nephropathy. noted urine protein creatinine ratio * Continue IV hydration * Monitor patient's fluid status and electrolytes closely * Avoid nephrotoxins. Avoid CHERIE inhibitor or ARB at this time as well Subjective Date of service: 03/13/18 Principal diagnosis: chyna Interval history: resting in bed today Objective - Exam Narrative Exam: General appearance: chronically ill, frail, other (pleasant -Omani male) EENT: PERRL, mucous membranes moist Neck: Present: neck supple, trachea midline. Absent: JVD/HJR, Masses Respiratory: Clear to Ascultation Heart: regular, normal heart rate, S1S2, no murmurs Gastrointestinal: Present: normal, normoactive bowel sounds, other (bladder does not appear distended) Integumentary: no rash, other (no edema) - Vital Signs Vital signs: Vital Signs - 12hr 03/12/18 03/13/18 03/13/18 23:34 03:35 05:05 Temperature 97.8 F 98.3 F Pulse Rate 76 79 79 Respiratory 20 18 Rate Blood Pressure 145/66 210/94 210/94 O2 Sat by Pulse 100 100 Oximetry 03/13/18 03/13/18 07:58 08:33 Temperature 97.8 F Pulse Rate 77 77 Respiratory 20 Rate Blood Pressure 181/85 181/85 O2 Sat by Pulse 98 Oximetry - Lab 03/10/18 13:28 03/13/18 03:02 Most recent lab results Calcium 8.4 mg/dL (8.4-10.2) 03/13/18 03:02 Magnesium 2.10 mg/dL (1.7-2.3) 03/10/18 13:54 Urine Creatinine 20.7 mg/dL (0.1-20.0) H 03/12/18 20:26 Urine Sodium 105 mmol/L 03/11/18 11:30 Urine Total Protein 13 mg/dL (5-11.8) H 03/12/18 20:26
[2018-03-13] MEDS: EXELON PO SCH ×2 (12:06→22:34)
[2018-03-13] MEDS: VITAMIN B-1 PO SCH (12:06)
[2018-03-13] MEDS: PEPCID PO SCH ×2 (12:06→22:34)
[2018-03-13] MEDS: COREG PO SCH ×2 (12:06→22:34)
[2018-03-13] MEDS: NORVASC PO SCH (12:06)
[2018-03-13] MEDS: FEOSOL PO SCH (12:06)
[2018-03-13] MEDS: HALFPRIN EC PO SCH (12:07)
[2018-03-13] MEDS: CLARITIN PO SCH (12:07)
[2018-03-13] MEDS: HEPARIN SUB-Q SCH ×2 (12:08→22:34)
--- NOTE | 2018-03-13 14:31 | Progress Note ---
Assessment and Plan / ARF (acute renal failure) with tubular necrosis ? cont IVF resuscitation therapy, repeat BMP in the am. Renal function improving renal US was unremarkable, baseline Cr unknown /Uncontrolled diabetes mellitus BG was ~500 on admission adjust Insulin therapy as needed, cont ADA diet, accu check, / Acute metabolic Encephalopathy Likely due to worsening renal function and uncontrolled BG/BP CT head unremarkable, cont neuro checks, seizure precautions, fall precautions /HTN, uncontrolled cont coreg and as needed hydralazine IV Will add amlodipine and hydralazine po adjust meds dose as needed for better control BP /Peripheral neuropathy add low dose neurontin /Glucoma Takes dorzolamide 2%, not available here, family to bring for in house use /Dementia supportive care, resume prehospital medication. /Coronary artery disease status post bypass surgery Cont aspirin, statin, BB Hold ACEI, diuretics for SUELLEN / DVT prophylaxis SCD to BLE while in bed. Disposition: Plan to d/c [facility], PT consulted, CM notified. Brief History: 87 YO Male personal alf Resident with h/o Dementia, CAD S/P CABG, DM, HLD , PAD, [place] presents to ED for evaluation of increased confusion over the past 3 weeks and decreased interaction with family. EMS was notified, and the patient was found to be confused with a serum glucose above 500. Pt transported to [facility] for further care and evaluation and was found to have elevation in BUN/ creatinine with hyperglycemia and uncontrolled BP. Radiological data: Renal US: Bilateral renal cysts. No hydronephrosis. CT head: Evidence of atrophy and microangiopathic ischemic disease. No acute intracranial process noted. Sinus as described. CXR: No acute cardiopulmonary process is identified. Subjective Date of service: 03/13/18 Principal diagnosis: suellen Interval history: Pt seen and examined Family at bedside, updated Patient is restraint, denies any chest pain or SOB, cooperative c/o leg cramp Objective - Exam Narrative Exam: General appearance: Present: no acute distress, well-nourished, other (elderly) - EENT Eyes: PERRL, EOM intact ENT: hearing intact, clear oral mucosa Ears: bilateral: normal - Neck Neck: supple, normal ROM - Respiratory Respiratory effort: normal Respiratory: bilateral: CTA - Cardiovascular Rhythm: regular Heart Sounds: Present: S1 & S2. Absent: gallop, rub Extremities: pulses intact, No edema, normal color, Full ROM - Gastrointestinal General gastrointestinal: Present: soft, non-tender, non-distended, normal bowel sounds - Integumentary Integumentary: clear, warm, dry - Musculoskeletal Musculoskeletal: 1, strength equal bilaterally - Neurologic Neurologic: moves all extremities, other (oriented to self only) - Psychiatric Psychiatric: no appropriate mood/affect, no intact judgment & insight, no memory intact - Constitutional Vitals: Vital Signs - 12hr 03/13/18 03/13/18 03/13/18 03:35 05:05 07:58 Temperature 98.3 F 97.8 F Pulse Rate 79 79 77 Respiratory 18 20 Rate Blood Pressure 210/94 210/94 181/85 O2 Sat by Pulse 100 98 Oximetry 03/13/18 03/13/18 08:33 14:08 Temperature 97.9 F Pulse Rate 77 77 Respiratory 18 Rate Blood Pressure 181/85 112/50 O2 Sat by Pulse 97 Oximetry - Labs CBC & Chem 7: 03/10/18 13:28 03/13/18 03:02 Labs: Abnormal lab results 03/12/18 03/12/18 03/13/18 Range/Units 15:59 20:26 03:02 BUN 29 H (9-20) mg/dL Creatinine 1.6 H (0.8-1.5) mg/dL Glucose 154 H (75-100) mg/dL POC Glucose 208 H (70-105) Urine Creatinine 20.7 H (0.1-20.0) mg/dL Urine Total Protein 13 H (5-11.8) mg/dL 03/13/18 03/13/18 Range/Units 07:58 11:40 BUN (9-20) mg/dL Creatinine (0.8-1.5) mg/dL Glucose (75-100) mg/dL POC Glucose 231 H 392 H (70-105) Urine Creatinine (0.1-20.0) mg/dL Urine Total Protein (5-11.8) mg/dL
[2018-03-13] MEDS: NACL 0.9% 1000 ML 1,000 ML IV SCH (15:46)
[2018-03-13] MEDS: SODIUM CHLORIDE FLUSH SYRINGE 10 ML IV SCH ×2 (15:47→22:37)
[2018-03-13] MEDS ORDERED: LANTUS SUB-Q SCH (22:00)
[2018-03-13] MEDS: LANTUS SUB-Q SCH (22:36)
[2018-03-14] MEDS: APRESOLINE PO SCH ×2 (05:18→15:05)
[2018-03-14] MEDS: NEURONTIN PO SCH ×3 (05:18→23:27)
[2018-03-14 05:23] LABS: Calcium 8.6 mg/dL (8.4-10.2)
[2018-03-14] MEDS: HumuLIN R SUB-Q SCH ×7 (07:36→23:38)
[2018-03-14] MEDS ORDERED: KIONEX PO NR (08:30)
[2018-03-14] MEDS: SODIUM CHLORIDE FLUSH SYRINGE 10 ML IV SCH (09:34)
[2018-03-14] MEDS: CLARITIN PO SCH (09:35)
[2018-03-14] MEDS: FEOSOL PO SCH (09:35)
[2018-03-14] MEDS: HALFPRIN EC PO SCH (09:35)
[2018-03-14] MEDS: VITAMIN B-1 PO SCH (09:35)
[2018-03-14] MEDS: EXELON PO SCH ×2 (09:35→23:28)
[2018-03-14] MEDS: PEPCID PO SCH ×2 (09:35→23:19)
[2018-03-14] MEDS: NORVASC PO SCH (09:36)
[2018-03-14] MEDS: COREG PO SCH (09:36)
--- NOTE | 2018-03-14 09:53 | Progress Note ---
Assessment and Plan Impression * Acute kidney injury * Encephalopathy * Hypertension * hyperkalemia * metabolic acidosis * Uncontrolled diabetes * Dementia * Coronary artery disease status post bypass surgery Recommendations * Patient clinically appears to be volume depleted. * cr is better today * add sodium bicarb * bladder us noted, inability to void? obstruction, aleman in place * He seems to be responding to IV hydration. * He also has 2+ dipstick protein. He may have underlying diabetic nephropathy. noted urine protein creatinine ratio * Continue IV hydration * Monitor patient's fluid status and electrolytes closely * Avoid nephrotoxins. Avoid CHERIE inhibitor or ARB at this time as well Subjective Date of service: 03/14/18 Principal diagnosis: chyna Interval history: resting in bed today Objective - Exam Narrative Exam: General appearance: chronically ill, frail, other (pleasant -Bangladeshi male) EENT: PERRL, mucous membranes moist Neck: Present: neck supple, trachea midline. Absent: JVD/HJR, Masses Respiratory: Clear to Ascultation Heart: regular, normal heart rate, S1S2, no murmurs Gastrointestinal: Present: normal, normoactive bowel sounds, other (bladder does not appear distended) Integumentary: no rash, other (no edema) - Vital Signs Vital signs: Vital Signs - 12hr 03/13/18 03/13/18 03/14/18 22:34 22:35 01:55 Temperature 98.6 F Pulse Rate 77 77 Respiratory 20 Rate Blood Pressure 203/94 203/94 153/80 O2 Sat by Pulse Oximetry 03/14/18 03/14/18 03/14/18 02:00 05:04 05:18 Temperature 97.2 F L Pulse Rate 80 74 74 Respiratory 20 Rate Blood Pressure 152/64 152/64 O2 Sat by Pulse 98 98 Oximetry 03/14/18 03/14/18 07:07 09:36 Temperature 98.2 F Pulse Rate 77 77 Respiratory 20 Rate Blood Pressure 143/62 143/62 O2 Sat by Pulse 98 Oximetry - Lab 03/10/18 13:28 03/14/18 04:23 Most recent lab results Calcium 8.6 mg/dL (8.4-10.2) 03/14/18 04:23 Magnesium 2.10 mg/dL (1.7-2.3) 03/10/18 13:54 Urine Creatinine 20.7 mg/dL (0.1-20.0) H 03/12/18 20:26 Urine Sodium 105 mmol/L 03/11/18 11:30 Urine Total Protein 13 mg/dL (5-11.8) H 03/12/18 20:26
[2018-03-14] MEDS: HEPARIN SUB-Q SCH (09:56)
[2018-03-14] MEDS ORDERED: SODIUM BICARBONATE 150 MEQ in D5W 1,000 ML IV SCH (10:00)
--- NOTE | 2018-03-14 11:45 | Progress Note ---
Assessment and Plan Assessment and plan: 87 YO Male personal penitentiary Resident with h/o Dementia, CAD S/P CABG, DM, HLD , PAD, [place] presents to ED for evaluation of increased confusion over the past 3 weeks and decreased interaction with family. EMS was notified, and the patient was found to be confused with a serum glucose above 500. Pt transported to [facility] for further care and evaluation and was found to have elevation in BUN/ creatinine with hyperglycemia. ARF (acute renal failure) with tubular necrosis ? -Treated with IV fluids, currently on bicarb - Renal function improving - renal US was unremarkable, baseline Cr unknown Uncontrolled diabetes mellitus - Currently controlled with basal and sliding scale insulin - Accu-Chek, ADA diet Acute metabolic Encephalopathy - Due to hyperglycemia, acute renal failure on top of dementia - Supportive care, continue current treatment for the underlying cause HTN - Continue current medications - Controlled Dementia - supportive care Coronary artery disease status post bypass surgery - Cont aspirin, statin, BB - Stable Hold ACEI, diuretics Hyperkalemia - Given Kayexalate, will monitor BMP DVT prophylaxis - On heparin Disposition - Pending placement History Interval history: Patient was seen and evaluated this morning, patient was confused and couldn't communicate. Hospitalist Physical - Physical exam Narrative exam: Not in cardiopulmonary distress. The patient appeared well nourished and normally developed. Vital signs as documented. Head exam is unremarkable. No scleral icterus . Neck is without jugular venous distension, thyromegaly, or carotid bruits. Lungs are clear to auscultation. Cardiac exam reveals regular rate and Rhythm. Abdominal exam reveals normal bowel sounds. Extremities are nonedematous. [employer]: Alert and demented. - Constitutional Vitals: Temp Pulse Resp BP Pulse Ox 98.2 F 77 20 143/62 98 03/14/18 07:07 03/14/18 09:36 03/14/18 07:07 03/14/18 09:36 03/14/18 07:07 General appearance: Present: no acute distress, well-nourished, other (elderly) Results - Labs CBC & Chem 7: 03/10/18 13:28 03/14/18 04:23 Labs: Laboratory Last Values WBC 9.9 K/mm3 (4.5-11.0) 03/10/18 13:28 RBC 4.07 M/mm3 (3.65-5.03) 03/10/18 13:28 Hgb 12.5 gm/dl (11.8-15.2) 03/10/18 13:28 Hct 38.1 % (35.5-45.6) 03/10/18 13:28 MCV 94 fl (84-94) 03/10/18 13:28 MCH 31 pg (28-32) 03/10/18 13:28 MCHC 33 % (32-34) 03/10/18 13:28 RDW 14.0 % (13.2-15.2) 03/10/18 13:28 Plt Count 202 K/mm3 (140-440) 03/10/18 13:28 Lymph % (Auto) 5.3 % (13.4-35.0) L 03/10/18 13:28 Todd % (Auto) 7.0 % (0.0-7.3) 03/10/18 13:28 Eos % (Auto) 0.1 % (0.0-4.3) 03/10/18 13:28 Baso % (Auto) 0.4 % (0.0-1.8) 03/10/18 13:28 Lymph # 0.5 K/mm3 (1.2-5.4) L 03/10/18 13:28 Todd # 0.7 K/mm3 (0.0-0.8) 03/10/18 13:28 Eos # 0.0 K/mm3 (0.0-0.4) 03/10/18 13:28 Baso # 0.0 K/mm3 (0.0-0.1) 03/10/18 13:28 Seg Neutrophils % 87.2 % (40.0-70.0) H 03/10/18 13:28 Seg Neutrophils # 8.7 K/mm3 (1.8-7.7) H 03/10/18 13:28 D-Dimer 489.32 ng/mlDDU (0-234) H 03/10/18 16:03 VBG pH 7.323 (7.320-7.420) 03/10/18 13:28 Sodium 136 mmol/L (137-145) L 03/14/18 04:23 Potassium 5.5 mmol/L (3.6-5.0) H 03/14/18 04:23 Chloride 105.3 mmol/L (98-107) 03/14/18 04:23 Carbon Dioxide 17 mmol/L (22-30) L D 03/14/18 04:23 Anion Gap 19 mmol/L 03/14/18 04:23 BUN 33 mg/dL (9-20) H 03/14/18 04:23 Creatinine 1.5 mg/dL (0.8-1.5) 03/14/18 04:23 Estimated GFR 54 ml/min 03/14/18 04:23 BUN/Creatinine Ratio 22 % 03/14/18 04:23 Glucose 50 mg/dL (75-100) L 03/14/18 04:23 POC Glucose 70 (70-105) 03/14/18 07:08 Hemoglobin A1c 11.9 % (4-6) H 03/11/18 16:41 Lactic Acid 2.70 mmol/L (0.7-2.0) H* 03/11/18 Unknown Calcium 8.6 mg/dL (8.4-10.2) 03/14/18 04:23 Magnesium 2.10 mg/dL (1.7-2.3) 03/10/18 13:54 Total Bilirubin 0.50 mg/dL (0.1-1.2) 03/10/18 13:54 AST 19 units/L (5-40) 03/10/18 13:54 ALT 13 units/L (7-56) 03/10/18 13:54 Alkaline Phosphatase 61 units/L (35-129) 03/10/18 13:54 Ammonia 46.0 umol/L (25-60) 03/10/18 14:06 NT-Pro-B Natriuret Pep 2058 pg/mL (0-900) H 03/10/18 16:03 Total Protein 8.3 g/dL (6.3-8.2) H 03/10/18 13:54 Albumin 3.5 g/dL (3.9-5) L 03/10/18 13:54 Albumin/Globulin Ratio 0.7 % 03/10/18 13:54 TSH 4.840 mlU/mL (0.270-4.200) H 03/10/18 14:06 Free T4 1.10 ng/dL (0.76-1.46) 03/10/18 14:06 Urine Color Yellow (Yellow) 03/10/18 13:26 Urine Turbidity Slightly-cloudy (Clear) 03/10/18 13:26 Urine pH 5.0 (5.0-7.0) 03/10/18 13:26 Ur Specific Register 1.021 (1.003-1.030) 03/10/18 13:26 Urine Protein 100 mg/dl mg/dL (Negative) 03/10/18 13:26 Urine Glucose (UA) >=500 mg/dL (Negative) 03/10/18 13:26 Urine Ketones Neg mg/dL (Negative) 03/10/18 13:26 Urine Blood Sm (Negative) 03/10/18 13:26 Urine Nitrite Neg (Negative) 03/10/18 13:26 Urine Bilirubin Neg (Negative) 03/10/18 13:26 Urine Urobilinogen < 2.0 mg/dL (<2.0) 03/10/18 13:26 Ur Leukocyte Esterase Neg (Negative) 03/10/18 13:26 Urine WBC (Auto) 2.0 /HPF (0.0-6.0) 03/10/18 13:26 Urine RBC (Auto) 3.0 /HPF (0.0-6.0) 03/10/18 13:26 Urine Mucus Few /HPF 03/10/18 13:26 Urine Eosinophils None seen (None Seen) 03/12/18 20:26 Urine Creatinine 20.7 mg/dL (0.1-20.0) H 03/12/18 20:26 Protein/Creatinin Ratio 0.63 03/12/18 20:26 Urine Sodium 105 mmol/L 03/11/18 11:30 Urine Total Protein 13 mg/dL (5-11.8) H 03/12/18 20:26 - Imaging and Cardiology Imaging and Cardiology: Hyperkalemia
[2018-03-14] MEDS ORDERED: DESYREL PO SCH (22:00)
[2018-03-14] MEDS: LANTUS SUB-Q SCH (23:29)
[2018-03-15 06:16] LABS: Calcium 7.9 mg/dL (8.4-10.2)
[2018-03-15] MEDS ORDERED: K-DUR PO ONE (07:34)
[2018-03-15] MEDS ORDERED: POTASSIUM CHLORIDE PO ONE (08:30)
[2018-03-15] MEDS: HumuLIN R SUB-Q SCH ×6 (08:55→17:00)
[2018-03-15] MEDS: KCL 10MEQ/100ML 10 MEQ/100 ML BAG IV SCH ×2 (08:55→10:12)
[2018-03-15] MEDS ORDERED: KCL 10MEQ/100ML 10 MEQ/100 ML BAG IV SCH (09:00)
[2018-03-15] MEDS: COREG PO SCH (09:04)
[2018-03-15] MEDS: VITAMIN B-1 PO SCH (09:05)
[2018-03-15] MEDS: CLARITIN PO SCH (09:05)
[2018-03-15] MEDS: PEPCID PO SCH (09:05)
[2018-03-15] MEDS: HALFPRIN EC PO SCH (09:05)
[2018-03-15] MEDS: FEOSOL PO SCH (09:06)
[2018-03-15] MEDS: SODIUM CHLORIDE FLUSH SYRINGE 10 ML IV SCH (09:06)
[2018-03-15] MEDS: HEPARIN SUB-Q SCH (09:07)
[2018-03-15] MEDS: NORVASC PO SCH (09:24)
[2018-03-15] MEDS: EXELON PO SCH (09:24)
--- NOTE | 2018-03-15 09:56 | Progress Note ---
Assessment and Plan Impression * Acute kidney injury * Encephalopathy * Hypertension * hyperkalemia * metabolic acidosis * Uncontrolled diabetes * Dementia * Coronary artery disease status post bypass surgery * hypokalemia Recommendations * Patient clinically appears to be volume depleted. * cr is stable today * stop sodium bicarb * bladder us noted, inability to void? obstruction, aleman in place * He seems to be responding to IV hydration. * He also has 2+ dipstick protein. He may have underlying diabetic nephropathy. noted urine protein creatinine ratio * Continue IV hydration * Monitor patient's fluid status and electrolytes closely * Avoid nephrotoxins. Avoid CHERIE inhibitor or ARB at this time as well Subjective Date of service: 03/15/18 Principal diagnosis: chyna Interval history: resting in bed today Objective - Exam Narrative Exam: General appearance: chronically ill, frail, other (pleasant -Cam[place]onian male) EENT: PERRL, mucous membranes moist Neck: Present: neck supple, trachea midline. Absent: JVD/HJR, Masses Respiratory: Clear to Ascultation Heart: regular, normal heart rate, S1S2, no murmurs Gastrointestinal: Present: normal, normoactive bowel sounds, other (bladder does not appear distended) Integumentary: no rash, other (no edema) - Vital Signs Vital signs: Vital Signs - 12hr 03/15/18 03/15/18 03/15/18 00:00 07:20 09:04 Temperature 98.5 F 97.5 F L Pulse Rate 96 H 74 74 Respiratory 18 Rate Blood Pressure 180/72 180/72 Blood Pressure 132/56 [Left] O2 Sat by Pulse 96 Oximetry 03/15/18 09:24 Temperature Pulse Rate 74 Respiratory Rate Blood Pressure 180/72 Blood Pressure [Left] O2 Sat by Pulse Oximetry - Lab 03/10/18 13:28 03/15/18 05:14 Most recent lab results Calcium 7.9 mg/dL (8.4-10.2) L 03/15/18 05:14 Magnesium 2.10 mg/dL (1.7-2.3) 03/10/18 13:54 Urine Creatinine 20.7 mg/dL (0.1-20.0) H 03/12/18 20:26 Urine Sodium 105 mmol/L 03/11/18 11:30 Urine Total Protein 13 mg/dL (5-11.8) H 03/12/18 20:26
[2018-03-15] MEDS ORDERED: D5/0.45NS 1,000 ML IV SCH (11:00)
[2018-03-15] MEDS: APRESOLINE PO SCH (14:13)
[2018-03-15] MEDS: NEURONTIN PO SCH (14:13)
--- NOTE | 2018-03-15 14:26 | Discharge Summary ---
Providers - Providers Date of Admission: 03/10/18 15:52 Attending physician: GARCIA LARSON MD 03/11/18 13:54 Consult to Physician [CONS] Routine Comment: JEY/MAN Consulting Provider: VAHE CHARLES Physician Instructions: CONSULT WAS CALLED TO ASHLEY/[id number] Reason For Exam: SUELLEN 03/13/18 11:19 Occupational Therapy Evaluate and Treat [CONS] Urgent Comment: Reason For Exam: General Weakness Physical Therapy Evaluation and Treat [CONS] Urgent Comment: Reason For Exam: General Weakness Primary care physician: ARMAMENT MECHANIC Hospitalization Reason for admission: Metabolic encehalopathy Condition: Stable Pertinent studies: head CT Bladder U/S Hospital course: 87 YO Male personal mcfp Resident with h/o Dementia, CAD S/P CABG, DM, HLD , PAD, MA presents to ED for evaluation of increased confusion over the past 3 weeks and decreased interaction with family. EMS was notified, and the patient was found to be confused with a serum glucose above 500. Pt transported to [facility] for further care and evaluation and was found to have elevation in BUN/ creatinine with hyperglycemia. ARF (acute renal failure) with tubular necrosis; Treated with IV fluids and bicarb, renal function improved, renal US was unremarkable, baseline Cr unknown. nephrology consult appreciated. Uncontrolled diabetes mellitus; treated with insulin regiment and controlled Acute metabolic Encephalopathy; Due to hyperglycemia, acute renal failure on top of dementia. patient was at baseline at the time of discharge. HTN; Controlled Coronary artery disease status post bypass surgery; Cont aspirin, statin, BB; Stable. patient discharged to SNF. Appropriate medication scripts were given. Disposition: DC/TX-06 HOME UNDER HOME [facility] Time spent for discharge: 35 minutes - Discharge Diagnoses (1) ARF (acute renal failure) with tubular necrosis Status: Acute (2) Dehydration Status: Acute (3) Dementia Status: Acute Qualifiers: Alzheimer's disease onset: late-onset Dementia behavioral disturbance: without behavioral disturbance (4) Diabetes mellitus with hyperglycemia Status: Acute (5) Encephalopathy Status: Acute Core Measure Documentation - Palliative Care Palliative Care/ Comfort Measures: Not Applicable - Core Measures Any of the following diagnoses?: none Exam - Physical Exam Narrative exam: Not in cardiopulmonary distress. The patient appeared well nourished and normally developed. Vital signs as documented. Head exam is unremarkable. No scleral icterus . Neck is without jugular venous distension, thyromegaly, or carotid bruits. Lungs are clear to auscultation. Cardiac exam reveals regular rate and Rhythm. Abdominal exam reveals normal bowel sounds. Extremities are nonedematous. CELL OPERATOR: Alert and demented. - Constitutional Vitals: Temp Pulse Resp BP Pulse Ox 98.0 F 79 18 151/71 95 03/15/18 11:45 03/15/18 14:13 03/15/18 11:45 03/15/18 14:13 03/15/18 11:45 Plan Activity: advance as tolerated Weight Bearing Status: Weight Bear as Tolerated Diet: advance as tolerated Additional Instructions: F/U at [facility] in 1-2 weeks
[2018-03-15 19:55] VITALS: BP 129/51
[2018-03-15 23:01] LABS: Gamma Globulin 1.8 g/dL (0.8-1.7)
== END 2018-03-15 20:00 | disposition home health service (06) | DRG 682 ==
LOC: ED 11:58 → 2B-ACE 15:52
PROVIDERS: ADMIT Internal Medicine; ATTEND Internal Medicine
DX: N17.0 Acute kidney failure with tubular necrosis (principal); G93.41 Metabolic encephalopathy; E87.2 Acidosis; I12.0 Hypertensive chronic kidney disease with stage 5 chronic kidney disease or end stage renal disease; E86.0 Dehydration; E11.65 Type 2 diabetes mellitus with hyperglycemia; F03.90 Unspecified dementia, unspecified severity, without behavioral disturbance, psychotic disturbance, mood disturbance, and anxiety; E87.5 Hyperkalemia; E11.51 Type 2 diabetes mellitus with diabetic peripheral angiopathy without gangrene; E11.42 Type 2 diabetes mellitus with diabetic polyneuropathy; H40.9 Unspecified glaucoma; E11.22 Type 2 diabetes mellitus with diabetic chronic kidney disease; N18.4 Chronic kidney disease, stage 4 (severe); I25.10 Atherosclerotic heart disease of native coronary artery without angina pectoris; Z95.1 Presence of aortocoronary bypass graft; I25.2 Old myocardial infarction; Z82.49 Family history of ischemic heart disease and other diseases of the circulatory system; Z83.3 Family history of diabetes mellitus; Z79.82 Long term (current) use of aspirin; Z79.899 Other long term (current) drug therapy; Z79.4 Long term (current) use of insulin; Z85.46 Personal history of malignant neoplasm of prostate
CPT/HCPCS: 36415; 70450; 71045; 76770; 76857; 80048; 80053; 81001; 82140; 82570; 82805; 82962; 83036; 83735; 83880; 84132; 84156; 84165; 84300; 84439; 84443; 85025; 85379; 87040; 87086; 89050; 93005; 93010; 93306; 95819; 96374; A9270-GY; G8978-GP; G8979-GP; G8987-GO; G8988-GO; G8989-GO; J0360; J1644; J1815; J3480; J7030; J7070

== ENCOUNTER 2018-07-10 09:29 | Emergency (ER) | payer MEDICARE ==
[2018-07-10 11:39] LABS: Basophils % (Auto) 0.5 % (0.0-1.8); Eosinophils # (Auto) 0.1 K/mm3 (0.0-0.4); Eosinophils % (Auto) 1.4 % (0.0-4.3); Hematocrit 34.5 % (35.5-45.6); Hemoglobin 11.6 gm/dl (11.8-15.2); Lymphocytes # (Auto) 0.7 K/mm3 (1.2-5.4); Mean Corpuscular HGB Conc 34 % (32-34); Mean Corpuscular Volume 95 fl (84-94); Monocytes % (Auto) 12.6 % (0.0-7.3); Platelet Count 230 K/mm3 (140-440); Red Blood Count 3.64 M/mm3 (3.65-5.03); Red Cell Distribution Width 13.6 % (13.2-15.2)
[2018-07-10 11:47] LABS: INR 1.05 (0.87-1.13)
[2018-07-10 11:57] LABS: Creatine Kinase MB 1.8 ng/mL (0.0-4.0)
--- NOTE | 2018-07-10 11:57 | Emergency Department Report ---
ED Syncope HPI - General Chief Complaint: Syncope Stated Complaint: SYNCOPE Time Seen by Provider: 07/10/18 10:50 Source: patient, old records (previous creatinine range 2.1-1.5. 1.7 in February 2018 prior to d/c) Exam Limitations: other (dementia) - History of Present Illness Initial Comments: 88-year-old male with past medical history dementia, chronic renal insufficiency, hypertension, CABG, PAD, and hyperlipidemia presents to the hospital complaints of syncope. Patient resides at a assisted living facility. Java Development Manager was present during episode but not at the bedside. Daughter at bedside states they orthopaedic technologist stated that patient was being assisted to the bathroom when he complained of feeling lightheaded. He then passed out but did not fall or strike his head. She also states that glucose was reported by EMS as in the 500 with decrease in route. As per family member at the bedside patient is now at his baseline mental status. Ot is alert and oriented to self but not place or year. He denies any pain and is not in any acute distress. - Related Data Allergies/Adverse Reactions: Allergies No Known Allergies Allergy (Unverified 03/10/18 14:19) Home Medications: Ambulatory Orders Aspirin [Adult Aspirin] 81 mg PO DAILY 03/10/18 AtorvaSTATin [Lipitor] 10 mg PO QHS 03/10/18 Carvedilol 12.5 mg PO BID 03/10/18 Ferrous Sulfate [Iron] 325 mg PO DAILY 03/10/18 Insulin Glargine [Lantus VIAL] 9 unit SUB-Q QHS 03/10/18 Insulin Lispro [Humalog 100 UNITS/ML Kwikpen] 0 units SQ AC 03/10/18 Loratadine [Allergy Relief] 10 mg PO DAILY 03/10/18 Rivastigmine Tartrate [Rivastigmine] 4.5 mg PO BID 03/10/18 Thiamine [Vitamin B-1] 100 mg PO QDAY 03/10/18 ED Review of Systems ROS: Stated complaint: SYNCOPE Other details as noted in HPI Comment: All other systems reviewed and negative ED Past Medical Hx - Past Medical History Hx Hypertension: Yes 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 Hyperlipidemia - Surgical History Hx Open Heart Surgery: Yes (bypass) - Social History Smoking Status: Unknown if ever smoked - Medications Home Medications: Home Medications Medication Instructions Recorded Confirmed Last Taken Type Aspirin [Adult Aspirin] 81 mg PO DAILY 03/10/18 03/10/18 Unknown History AtorvaSTATin [Lipitor] 10 mg PO QHS 03/10/18 03/10/18 Unknown History Carvedilol 12.5 mg PO BID 03/10/18 03/10/18 Unknown History Ferrous Sulfate [Iron] 325 mg PO DAILY 03/10/18 03/10/18 Unknown History Insulin Glargine [Lantus VIAL] 9 unit SUB-Q QHS 03/10/18 03/10/18 Unknown History Insulin Lispro [Humalog 100 0 units SQ AC 03/10/18 03/10/18 Unknown History UNITS/ML Kwikpen] Loratadine [Allergy Relief] 10 mg PO DAILY 03/10/18 03/10/18 Unknown History Rivastigmine Tartrate 4.5 mg PO BID 03/10/18 03/10/18 Unknown History [Rivastigmine] Thiamine [Vitamin B-1] 100 mg PO QDAY 03/10/18 03/10/18 Unknown History ED Physical Exam - General Limitations: Other - Other Other exam information: General: No limitations, patient is alert in no acute distress Head exam: Atraumatic, normocephalic Eyes exam: Normal appearance, pupils equal reactive to light, extraocular movements intact ENT: Moist mucous membrane, normal oropharynx Neck exam: Normal inspection, full range of motion, no meningismus nontender Respiratory exam: Clear to auscultation bilateral, no wheezes, rales, crackles Cardiovascular: Normal rate and rhythm Abdomen: Soft, nondistended, and nontender, with normal bowel sounds, no rebound, or guarding Extremity: Full range of motion normal inspection no deformity Back: Normal Inspection, full range of motion, no tenderness Neurologic: Alert, oriented x1, cranial nerves intact, no motor or sensory deficit. GCS equals 15 Psychiatric: normal affect, normal mood Skin: Warm, dry, intact ED Course Vital Signs 07/10/18 07/10/18 07/10/18 09:41 09:45 10:00 Temperature 97.6 F 97.6 F Pulse Rate 69 68 70 Respiratory 11 L 12 12 Rate Blood Pressure Blood Pressure 128/65 128/65 [Left] O2 Sat by Pulse 100 97 Oximetry 07/10/18 07/10/18 07/10/18 10:15 10:30 10:45 Temperature Pulse Rate 70 66 66 Respiratory 16 21 13 Rate Blood Pressure 122/58 122/52 122/52 Blood Pressure [Left] O2 Sat by Pulse Oximetry 07/10/18 07/10/18 07/10/18 11:00 11:15 11:31 Temperature Pulse Rate 61 67 60 Respiratory 13 17 12 Rate Blood Pressure 141/56 141/56 Blood Pressure [Left] O2 Sat by Pulse Oximetry 07/10/18 07/10/18 07/10/18 11:45 12:01 12:09 Temperature 97.6 F Pulse Rate 63 59 L 60 Respiratory 14 11 L 14 Rate Blood Pressure 141/56 141/56 Blood Pressure 139/55 [Left] O2 Sat by Pulse 100 Oximetry 07/10/18 12:15 Temperature Pulse Rate 59 L Respiratory 10 L Rate Blood Pressure 139/55 Blood Pressure [Left] O2 Sat by Pulse Oximetry - Consultations Consultation #1: 07/10/18 13:12 zack paged 07/10/18 13:27 accepted by [facility] for ER transfer. (Dr Golden) ED Medical Decision Making - Lab Data Result diagrams: 07/10/18 11:17 07/10/18 11:17 Lab Results 07/10/18 07/10/18 07/10/18 Range/Units 11:17 11:17 11:17 WBC 7.9 (4.5-11.0) K/mm3 RBC 3.64 L (3.65-5.03) M/mm3 Hgb 11.6 L (11.8-15.2) gm/dl Hct 34.5 L (35.5-45.6) % MCV 95 H (84-94) fl MCH 32 (28-32) pg MCHC 34 (32-34) % RDW 13.6 (13.2-15.2) % Plt Count 230 (140-440) K/mm3 Lymph % (Auto) 9.0 L (13.4-35.0) % [place] % (Auto) 12.6 H (0.0-7.3) % Eos % (Auto) 1.4 (0.0-4.3) % Baso % (Auto) 0.5 (0.0-1.8) % Lymph # 0.7 L (1.2-5.4) K/mm3 [place] # 1.0 H (0.0-0.8) K/mm3 Eos # 0.1 (0.0-0.4) K/mm3 Baso # 0.0 (0.0-0.1) K/mm3 Seg Neutrophils % 76.5 H (40.0-70.0) % Seg Neutrophils # 6.0 (1.8-7.7) K/mm3 PT 14.3 (12.2-14.9) Sec. INR 1.05 (0.87-1.13) APTT (24.2-36.6) Sec. Sodium 139 (137-145) mmol/L Potassium 4.5 (3.6-5.0) mmol/L Chloride 100.3 (98-107) mmol/L Carbon Dioxide 26 (22-30) mmol/L Anion Gap 17 mmol/L BUN 53 H (9-20) mg/dL Creatinine 2.4 H (0.8-1.5) mg/dL Estimated GFR 31 ml/min BUN/Creatinine Ratio 22 % Glucose 100 (75-100) mg/dL POC Glucose (70-105) Calcium 9.5 (8.4-10.2) mg/dL Magnesium (1.7-2.3) mg/dL Total Bilirubin 0.60 (0.1-1.2) mg/dL AST 18 (5-40) units/L ALT 12 (7-56) units/L Alkaline Phosphatase 50 (35-129) units/L Total Creatine Kinase (55-170) units/L CK-MB (CK-2) (0.0-4.0) ng/mL CK-MB (CK-2) Rel Index (0-4) Troponin T 0.033 H (0.00-0.029) ng/mL Total Protein 8.2 (6.3-8.2) g/dL Albumin 3.0 L (3.9-5) g/dL Albumin/Globulin Ratio 0.6 % Triglycerides 67 (2-149) mg/dL Cholesterol 128 (50-199) mg/dL LDL Cholesterol Direct 69 (50-130) mg/dL HDL Cholesterol 49 (40-59) mg/dL Cholesterol/HDL Ratio 2.61 % Urine Color (Yellow) Urine Turbidity (Clear) Urine pH (5.0-7.0) Ur Specific [place] (1.003-1.030) Urine Protein (Negative) mg/dL Urine Glucose (UA) (Negative) mg/dL Urine Ketones (Negative) mg/dL Urine Blood (Negative) Urine Nitrite (Negative) Urine Bilirubin (Negative) Urine Urobilinogen (<2.0) mg/dL Ur Leukocyte Esterase (Negative) Urine WBC (Auto) (0.0-6.0) /HPF Urine RBC (Auto) (0.0-6.0) /HPF Urine Bacteria (Auto) (Negative) /HPF 07/10/18 07/10/18 07/10/18 Range/Units 11:17 11:17 11:18 WBC (4.5-11.0) K/mm3 RBC (3.65-5.03) M/mm3 Hgb (11.8-15.2) gm/dl Hct (35.5-45.6) % MCV (84-94) fl MCH (28-32) pg MCHC (32-34) % RDW (13.2-15.2) % Plt Count (140-440) K/mm3 Lymph % (Auto) (13.4-35.0) % [place] % (Auto) (0.0-7.3) % Eos % (Auto) (0.0-4.3) % Baso % (Auto) (0.0-1.8) % Lymph # (1.2-5.4) K/mm3 [place] # (0.0-0.8) K/mm3 Eos # (0.0-0.4) K/mm3 Baso # (0.0-0.1) K/mm3 Seg Neutrophils % (40.0-70.0) % Seg Neutrophils # (1.8-7.7) K/mm3 PT (12.2-14.9) Sec. INR (0.87-1.13) APTT 20.9 L (24.2-36.6) Sec. Sodium (137-145) mmol/L Potassium (3.6-5.0) mmol/L Chloride (98-107) mmol/L Carbon Dioxide (22-30) mmol/L Anion Gap mmol/L BUN (9-20) mg/dL Creatinine (0.8-1.5) mg/dL Estimated GFR ml/min BUN/Creatinine Ratio % Glucose (75-100) mg/dL POC Glucose 111 H (70-105) Calcium (8.4-10.2) mg/dL Magnesium 1.90 (1.7-2.3) mg/dL Total Bilirubin (0.1-1.2) mg/dL AST (5-40) units/L ALT (7-56) units/L Alkaline Phosphatase (35-129) units/L Total Creatine Kinase 127 (55-170) units/L CK-MB (CK-2) 1.8 (0.0-4.0) ng/mL CK-MB (CK-2) Rel Index 1.4 (0-4) Troponin T (0.00-0.029) ng/mL Total Protein (6.3-8.2) g/dL Albumin (3.9-5) g/dL Albumin/Globulin Ratio % Triglycerides (2-149) mg/dL Cholesterol (50-199) mg/dL LDL Cholesterol Direct (50-130) mg/dL HDL Cholesterol (40-59) mg/dL Cholesterol/HDL Ratio % Urine Color (Yellow) Urine Turbidity (Clear) Urine pH (5.0-7.0) Ur Specific [place] (1.003-1.030) Urine Protein (Negative) mg/dL Urine Glucose (UA) (Negative) mg/dL Urine Ketones (Negative) mg/dL Urine Blood (Negative) Urine Nitrite (Negative) Urine Bilirubin (Negative) Urine Urobilinogen (<2.0) mg/dL Ur Leukocyte Esterase (Negative) Urine WBC (Auto) (0.0-6.0) /HPF Urine RBC (Auto) (0.0-6.0) /HPF Urine Bacteria (Auto) (Negative) /HPF 07/10/18 Range/Units 11:35 WBC (4.5-11.0) K/mm3 RBC (3.65-5.03) M/mm3 Hgb (11.8-15.2) gm/dl Hct (35.5-45.6) % MCV (84-94) fl MCH (28-32) pg MCHC (32-34) % RDW (13.2-15.2) % Plt Count (140-440) K/mm3 Lymph % (Auto) (13.4-35.0) % [place] % (Auto) (0.0-7.3) % Eos % (Auto) (0.0-4.3) % Baso % (Auto) (0.0-1.8) % Lymph # (1.2-5.4) K/mm3 [place] # (0.0-0.8) K/mm3 Eos # (0.0-0.4) K/mm3 Baso # (0.0-0.1) K/mm3 Seg Neutrophils % (40.0-70.0) % Seg Neutrophils # (1.8-7.7) K/mm3 PT (12.2-14.9) Sec. INR (0.87-1.13) APTT (24.2-36.6) Sec. Sodium (137-145) mmol/L Potassium (3.6-5.0) mmol/L Chloride (98-107) mmol/L Carbon Dioxide (22-30) mmol/L Anion Gap mmol/L BUN (9-20) mg/dL Creatinine (0.8-1.5) mg/dL Estimated GFR ml/min BUN/Creatinine Ratio % Glucose (75-100) mg/dL POC Glucose (70-105) Calcium (8.4-10.2) mg/dL Magnesium (1.7-2.3) mg/dL Total Bilirubin (0.1-1.2) mg/dL AST (5-40) units/L ALT (7-56) units/L Alkaline Phosphatase (35-129) units/L Total Creatine Kinase (55-170) units/L CK-MB (CK-2) (0.0-4.0) ng/mL CK-MB (CK-2) Rel Index (0-4) Troponin T (0.00-0.029) ng/mL Total Protein (6.3-8.2) g/dL Albumin (3.9-5) g/dL Albumin/Globulin Ratio % Triglycerides (2-149) mg/dL Cholesterol (50-199) mg/dL LDL Cholesterol Direct (50-130) mg/dL HDL Cholesterol (40-59) mg/dL Cholesterol/HDL Ratio % Urine Color Yellow (Yellow) Urine Turbidity Slightly-cloudy (Clear) Urine pH 5.0 (5.0-7.0) Ur Specific [place] 1.017 (1.003-1.030) Urine Protein 100 mg/dl (Negative) mg/dL Urine Glucose (UA) 50 (Negative) mg/dL Urine Ketones Neg (Negative) mg/dL Urine Blood Neg (Negative) Urine Nitrite Neg (Negative) Urine Bilirubin Neg (Negative) Urine Urobilinogen 2.0 (<2.0) mg/dL Ur Leukocyte Esterase Neg (Negative) Urine WBC (Auto) 2.0 (0.0-6.0) /HPF Urine RBC (Auto) 4.0 (0.0-6.0) /HPF Urine Bacteria (Auto) 1+ (Negative) /HPF - EKG Data -: EKG Interpreted by Me (inc rbbb) EKG shows normal: sinus rhythm, axis (qrs 42), QRS complexes (qrsd 122), ST-T waves (ant lat t inv) - EKG Data When compared to previous EKG there are: no significant change - Radiology Data Radiology results: report reviewed cxr: naf Referring Physician: GENESIS LAU Patient Name: TITI GO Date of : 1930 Sex: Male Report Date: 2018-07-10 Report Status: Finalized Findings [facility] [address] [place] [address] Cat Scan Report Signed Patient: TITI GO MR#: [id number] : 1930 Acct:[id number] Age/Sex: 88 / M ADM Date: 07/10/18 Loc: ED Attending Dr: Ordering Physician: GENESIS LAU MD Date of Service: 07/10/18 Procedure(s): CT head/brain wo con Accession Number(s): [id number] cc: GENESIS LAU MD FINAL REPORT EXAM: CT HEAD/BRAIN WO CON HISTORY: Syncope TECHNIQUE: CT of the Head without IV contrast. PRIORS: None currently available. FINDINGS: Right subdural hematoma measures 6.7 mm in thickness with a hematocrit level. Hematoma extends from the right temporal middle fossa to the right frontal parietal convexity. Acute and subacute blood identified. Trace acute blood along the right tentorial leaflet Mild mass effect identified. Minimal left midline shift measures 2.2 mm. Possible mild hydrocephalus. No parenchymal or intraventricular bleed. Basal cisterns are patent. There is no evidence for acute ischemia. There is no mass. Age appropriate garrett-white matter attenuation is noted. There is no calvarial fracture. The temporal bones demonstrate aerated mastoid air cells. The middle ears appear unremarkable. Opacified right partially imaged maxillary sinus noted. Opacified right anterior ethmoid air cells identified and right frontal sinus noted. Mild mucosal thickening in the left ethmoid sinuses. Globes are intact. IMPRESSION: Right subdural hematoma with acute and subacute blood. Layering hematocrit level noted. Minimal left midline shift. Possible minimal to mild hydrocephalus. Sinus disease. July 10, 2018 at 1257 PST: I discussed the findings over phone with Dr. Lau. - Medical Decision Making Patient has CT findings of subacute and acute subdural hematoma without a witness fall with head injury. Patient has chronic dementia and unable to provide any additional history. Renal insufficiency slightly worsened baseline noted in IV fluids initiated. Patient accepted to [facility] for transfer. Daughter made aware - Differential Diagnosis infection, arrhythmia, syncope, anemia, ICH Critical Care Time: No Critical care attestation.: If time is entered above; I have spent that time in minutes in the direct care of this critically ill patient, excluding procedure time. ED Disposition Clinical Impression: Syncope, Dehydration, Acute on chronic renal failure, Dementia, Subdural hematoma Disposition: DC/TX-70 ANOTHER TYPE HLTHCARE Is pt being admited?: No Condition: Stable Time of Disposition: 13:29 (accepted by Dr Chico dixon)
[2018-07-10 11:58] LABS: Calcium 9.5 mg/dL (8.4-10.2)
[2018-07-10] MEDS ORDERED: NACL 0.9% 1000 ML 1,000 ML IV ONE (11:59)
--- NOTE | 2018-07-10 11:59 | XRay Report ---
AP CHEST :07/10/18 11:24 CLINICAL: Syncope. COMPARISON:03/10/18 FINDINGS: The heart is normal size. The pulmonary vessels are normal. The left pulmonary artery is prominent due to rotation.. The lungs are normally expanded and clear except for a right basal calcified granuloma. Median sternotomy wires and mediastinal surgical clips. IMPRESSION: No acute cardiopulmonary process.
[2018-07-10 12:10] LABS: Chol/HDL Ratio 2.61 %
[2018-07-10 12:32] LABS: Bacteria,Urine 1+ /HPF (Negative); Bilirubin,Urine NEG (Negative); Blood,Urine NEG (Negative); Color,Urine Yellow (Yellow)
--- NOTE | 2018-07-10 13:02 | Cat Scan Report ---
FINAL REPORT EXAM: CT HEAD/BRAIN WO CON HISTORY: Syncope TECHNIQUE: CT of the Head without IV contrast. PRIORS: None currently available. FINDINGS: Right subdural hematoma measures 6.7 mm in thickness with a hematocrit level. Hematoma extends from t he right temporal middle fossa to the right frontal parietal convexity. Acute and subacute blood iden tified. Trace acute blood along the right tentorial leaflet Mild mass effect identified. Minimal left midline shift measures 2.2 mm. Possible mild hydrocephalus. No parenchymal or intraventricular bleed. Basal cisterns are patent. There is no evidence for acute ischemia. There is no mass. Age appropriate garrett-white matter attenuation is noted. There is no calvarial fracture. The temporal bones demonstrate aerated mastoid air cells. The middle ears appear unremarkable. Opacified right partially imaged maxillary sinus noted. Opacified right anterior ethmoid air cells id entified and right frontal sinus noted. Mild mucosal thickening in the left ethmoid sinuses. Globes are intact. IMPRESSION: Right subdural hematoma with acute and subacute blood. Layering hematocrit level noted. Minimal left midline shift. Possible minimal to mild hydrocephalus. Sinus disease. July 10, 2018 at 1257 PST: I discussed the findings over phone with Dr. Lau.
[2018-07-10 15:34] VITALS: BP 165/69
== END 2018-07-10 14:52 | disposition other institution (70) ==
LOC: ED 09:29
DX: I62.01 Nontraumatic acute subdural hemorrhage (principal); E86.0 Dehydration; R55 Syncope and collapse; I12.9 Hypertensive chronic kidney disease with stage 1 through stage 4 chronic kidney disease, or unspecified chronic kidney disease; N18.4 Chronic kidney disease, stage 4 (severe); I73.9 Peripheral vascular disease, unspecified; E78.5 Hyperlipidemia, unspecified; Z95.1 Presence of aortocoronary bypass graft; Z79.82 Long term (current) use of aspirin; W18.39XA Other fall on same level, initial encounter; Y93.89 Activity, other specified; Y92.89 Other specified places as the place of occurrence of the external cause; Y99.8 Other external cause status
CPT/HCPCS: 36415; 70450; 71045; 80053; 80061; 81001; 82550; 82553; 82962; 83735; 84484; 85025; 85610; 85730; 93005; 93010; 96360; 99285; J7030